=== PATIENT | female | born 1970 | race Caucasian/White ===

== ENCOUNTER 2020-06-07 10:33 | Emergency (ER) | payer BC, SELFPAY ==
[~2020-06-07] VITALS: Ht 157.5 cm; Wt 100.7 kg
[2020-06-07 10:36] VITALS: BP 121/70; Ht 157.5 cm; Wt 100.7 kg
== END 2020-06-07 14:18 | disposition home or self-care (01) ==
LOC: ED 10:33
DX: R19.7 Diarrhea, unspecified (principal); R50.9 Fever, unspecified; R10.9 Unspecified abdominal pain; R51.9 Headache, unspecified; E66.9 Obesity, unspecified; I10 Essential (primary) hypertension; Z20.828 Contact with and (suspected) exposure to other viral communicable diseases; Z98.890 Other specified postprocedural states; Z68.41 Body mass index [BMI] 40.0-44.9, adult
CPT/HCPCS: U0003